=== PATIENT | female | born 1975 ===

== ENCOUNTER 2017-06-08 10:52 | Outpatient (CLI) | payer SELFPAY ==
--- NOTE | 2017-06-08 13:02 | MMO ---
BILATERAL DIGITAL SCREENING MAMMOGRAMS: Date: 06/08/17 This patient's mammogram was interpreted with the assistance of computer-aided detection. Baseline exam. FINDINGS: The breast tissue is heterogeneously dense, which may reduce the sensitivity of mammography. No suspi cious masses, calcifications, or architectural distortion are identified. IMPRESSION: BIRADS 1: Negative Return to annual mammographic screening. POS: [facility]
== END 2017-06-08 10:53 | disposition home or self-care (01) ==
LOC: SCSMAMMO 10:52
PROVIDERS: ATTEND Nurse Practitioner Family
DX: N60.11 Diffuse cystic mastopathy of right breast (principal); N60.12 Diffuse cystic mastopathy of left breast
CPT/HCPCS: 77067